=== PATIENT | female | born 1940 | race Caucasian/White ===

== ENCOUNTER 2016-11-26 11:09 | Inpatient (IN) | payer MEDICARE ==
[~2016-11-26 11:09] MED LIST: ACCUPRIL40 M1 PO; ASPIRIN325 M3 PO; BACTRIM DS TAB1 EAC2 PO; HYDROCODON-ACE1 EA16 PO; NEURONTIN100 M1 PO; PAXIL20 M1 PO; PROTONIX40 M2 PO; TYLENOL325 M2 PO; ULTRAM50 M1 PO
[2016-11-26] MEDS ORDERED: ASPIRIN EC81 MG PO (11:50)
[2016-11-26 12:27] LABS: INR 0.9 INR (0.9-1.1); PROTHROMBIN TIME 10.6 SECONDS (9.0-13.6)
[2016-11-26 21:18] LABS: INR 0.9 INR (0.9-1.1); PROTHROMBIN TIME 10.9 SECONDS (9.0-13.6)
[2016-11-27 05:13] LABS: BASO % 0.1 % (0-2); HCT-HEMATOCRIT 37.7 % (34.0-49.0); HGB-HEMOGLOBIN 11.7 gm/dl (12.0-15.5); IMMATURE GRANULOCYTES ABSOLUTE 0.01 tho/cmm (0-0.03); IMMATURE GRANULOCYTES PERCENT 0.1 % (0-0.3); LYMPH % 5.6 % (20-45); LYMPH ABSOLUTE COUNT 0.6 tho/cmm (0.8-4.5); MCH (MEAN CORPUSCULAR HGB) 26.4 pg (28.0-32.0); MCV (MEAN CELL VOLUME) 85.1 fl (82.0-96.0); MEAN PLATELET VOLUME 8.2 cmc (9.4-12.4); MONO % 8.3 % (0-12); MONOCYTE ABSOLUTE COUNT 0.9 tho/cmm (0.0-1.2); NEUTROPHIL ABSOLUTE COUNT 9.7 tho/cmm (1.6-8.0); NEUTROPHIL-AUTOMATED 9.7 tho/cmm (1.6-8.0); NEUTROPHILS % 85.9 % (40-80); PLATELET COUNT 223 tho/cmm (150-450); RED BLOOD COUNT 4.43 mil/cmm (4.00-5.20); RED CELL DISTRIBUTION WIDTH 14.8 % (12.4-16.4); WHITE BLOOD COUNT 11.3 tho/cmm (4.0-10.0)
[2016-11-28] MEDS ORDERED: ROXICODONE5 M2 PO (10:18)
[2016-11-28] MEDS ORDERED: ULTRAM50 M1 PO (10:19)
[2016-11-28] MEDS ORDERED: TYLENOL325 M2 PO (10:21)
[2016-11-28] MEDS ORDERED: MOBIC7.5 M2 PO (10:22)
[2017-01-26] MEDS ORDERED: CEFDINIR300 M1 PO (16:11)
[2017-01-26] MEDS ORDERED: SENOKOT PO (16:16)
[2017-02-01] MEDS ORDERED: ROXICODONE5 M2 PO (12:05)
== END 2016-11-28 16:00 | DRG 467 ==
LOC: SHSC 11:09 → ORE 14:08 → PACU 17:28 → 5EA 18:50
PROVIDERS: ADMIT Orthopaedic Surgery Foot and Ankle Surgery
PROC: 3E0F7GC Introduction of Other Therapeutic Substance into Respiratory Tract, Via Natural or Artificial Opening (ICD-10-PCS; principal; 2016-11-26)
PROC: 0SRD0J9 Replacement of Left Knee Joint with Synthetic Substitute, Cemented, Open Approach (ICD-10-PCS; principal; 2016-11-26)
PROC: 0SUU09Z Supplement Left Knee Joint, Femoral Surface with Liner, Open Approach (ICD-10-PCS; principal; 2016-11-26)
PROC: 0SPD0JZ Removal of Synthetic Substitute from Left Knee Joint, Open Approach (ICD-10-PCS; principal; 2016-11-26)
DX: M17.12 Unilateral primary osteoarthritis, left knee (principal); D62 Acute posthemorrhagic anemia; I10 Essential (primary) hypertension; K21.9 Gastro-esophageal reflux disease without esophagitis; K44.9 Diaphragmatic hernia without obstruction or gangrene; K57.90 Diverticulosis of intestine, part unspecified, without perforation or abscess without bleeding; D72.828 Other elevated white blood cell count
CPT/HCPCS: C1713; C1776; J0171; J0690; J1885; J2270; J2795; J3010; J3370